=== PATIENT | male | born 1975 | race Caucasian/White ===

== ENCOUNTER 2017-03-05 05:48 | Inpatient (IN) | payer SELFPAY ==
[2017-03-05] MEDS ORDERED: Vancomycin HCl 1.5 GM in Sodium Chloride 0.9% 250 ML 300 ML IVPB SCH (06:30)
[2017-03-05] MEDS ORDERED: cefTRIAXone\\ROCEPHIN 2 GM VIAL ONE (06:31)
[2017-03-05] MEDS ORDERED: Dexamethasone 10 MG/ML VIAL ONE (07:49)
[2017-03-05 07:54] LABS: ALT (SGPT) 57 U/L (8-55); AST (SGOT) 51 U/L (5-34); Alkaline Phosphatase 86 U/L (40-150); Bilirubin, Direct 0.2 mg/dL (0.1-0.3); Bilirubin, Total 0.3 mg/dL (0.2-1.2); Lipase 19 U/L (8-78); Protein, Total 4.9 g/dL (6.0-8.3)
[2017-03-05] MEDS ORDERED: Ondansetron HCl/PF 4 MG/2 ML Vial IVP PRN (07:54)
[2017-03-05] MEDS ORDERED: Calcium Carbonate 500 MG ChewTAB PO PRN (07:54)
[2017-03-05] MEDS ORDERED: Senokot 8.6 MG TAB PO PRN (07:54)
[2017-03-05] MEDS ORDERED: Ondansetron ODT 4 MG TAB PO PRN (07:54)
[2017-03-05] MEDS ORDERED: Nitroglycerin 0.4 MG TAB (25 Tab Bottle) PO PRN (07:54)
[2017-03-05] MEDS ORDERED: Acetaminophen 325 MG TAB PO PRN (07:54)
[2017-03-05] MEDS ORDERED: ABX IVPB PRN (08:01)
[2017-03-05] MEDS ORDERED: Loratadine 10 MG TAB PO PRN (08:01)
[2017-03-05] MEDS ORDERED: VANCOMYCIN IVPB PRN (08:01)
[2017-03-05] MEDS ORDERED: Eucerin (Mineral Oil/Petrolatum,White) 30 gm Jar TOP PRN (08:01)
[2017-03-05 08:07] LABS: Anion Gap 10 mmol/L (10-20); BUN (Urea Nitrogen) 41 mg/dL (8.9-20.6); CK (CPK) 70 U/L (30-200); Calc. Creatinine Clearance 0 mL/min (70-130); Calcium 6.5 mg/dL (7.8-10.44); Carbon Dioxide 17 mmol/L (22-29); Chloride 116 mmol/L (98-107); Estimated GFR-MDRD 25
[2017-03-05 08:12] LABS: Troponin I Less than 0.010 ng/mL (< 0.028)
--- NOTE | 2017-03-05 08:31 | HP ---
DATE OF ADMISSION: 03/05/2017 PRIMARY CARE PHYSICIAN: Dr. Galloway. CHIEF COMPLAINT: Bilateral flank pain. HISTORY OF PRESENT ILLNESS: The patient is a 41-year-old male with IV drug use, coronary artery dis ease, status post stent placement and strokes in the past, presented to the emergency room at [facility] with above complaint. Over the last five days, the patient developed gradual worsening pain in bilateral flanks along with hips. His symptoms got worse last night. He also had chills. He did not record his temperature. He also urinates only once every 2 days. He does not drink that much water per family. He also doe d nausea with on and off vomiting. He has not been eating well over the past 5 days. His urine was also dark. No constipation reported. The abdominal pain was moderate in intensity without any rad iation. It was more or less constant. In the emergency room at [place], his initial vital signs showed temperature 102.2 with respira tion 20, pulse rate of 137 with blood pressure of 99/64 with O2 saturation 94% on room air. His ini tial WBC count was 14.1 with 80% neutrophils. His creatinine was 2.95 with BUN 45 with lactic acid of 2.6. Urine drug screen was positive for amphetamines, methamphetamines and opiates. He received Levaquin along with 30 mg of Toradol, Zofran, Tylenol with 1 liter IV fluids. He was transferred t o this facility for hospital admission. He also underwent a CT scan of the abdomen without contrast that showed perinephric stranding. Official report is not available at this time. PAST MEDICAL HISTORY: 1. Coronary artery disease, status post stent placement 5 months ago in [place], [place]. 2. History of cerebrovascular accident. 3. Chronic kidney disease stage 2. 4. Polysubstance abuse. PAST SURGICAL HISTORY: 1. Coronary stent placement. 2. Appendectomy. ALLERGIES: No known drug allergies. CURRENT HOME MEDICATIONS: The patient is able to name some of his medications that include Plavix, lisinopril, pravastatin, metoprolol extended release. He was recently started on Paxil. SOCIAL HISTORY: He continues to use IV drugs on and off. No alcohol. He smokes on and off. FAMILY HISTORY: Positive for coronary artery disease. REVIEW OF SYSTEMS: The following complete review of systems was negative, unless otherwise mentione d in the HPI or below: Constitutional: Weight loss or gain, ability to conduct usual activities. Skin: Rash, itching. Eyes: Double vision, pain. ENT/Mouth: Nose bleeding, neck stiffness, pain, tenderness. Cardiovascular: Palpitations, dyspnea on exertion, orthopnea. Respiratory: Shortness of breath, wheezing, cough, hemoptysis, fever or night sweats. Gastrointestinal: Poor appetite, abdominal pain, heartburn, nausea, vomiting, constipation, or diar hortensia. Genitourinary: Urgency, frequency, dysuria, nocturia. Musculoskeletal: Pain, swelling. Neurologic/Psychiatric: Anxiety, depression. Allergy/Immunologic: Skin rash, bleeding tendency. PHYSICAL EXAMINATION: VITAL SIGNS: As discussed above. His last blood pressure was in systolic 70s. GENERAL: A 41-year-old male, somewhat anxious appearing, in mild distress as well. The phlebotomis t is trying to draw blood at the same time. HEENT: Head atraumatic, normocephalic. Sclerae are anicteric. Dry mucous membranes. No oral lesi on. NECK: Supple, no JVD appreciated. No carotid bruit. LUNGS: Essentially clear to auscultation. No wheezing or rales. HEART: S1, S2 present. Regular rate and rhythm. No murmur, rubs appreciated. ABDOMEN: Soft, mild generalized tenderness mainly over the flanks. No rebound or guarding. There was voluntary guarding. Bowel sounds are present. EXTREMITIES: No edema or calf tenderness. NEUROLOGIC: Grossly nonfocal, moves all four extremities. PSYCHIATRY: Alert, awake, oriented x3. SKIN: Warm and dry. LYMPH NODE: No palpable lymph nodes in the neck. PERIPHERAL VASCULAR: Radial pulses palpable bilaterally. MUSCULOSKELETAL: No joint swelling or tenderness. LABORATORY FINDINGS: As discussed above. 1. Sodium was 142 with potassium 3.9, bicarbonate of 20. Lactic acid 2.6. His AST was 88, ALT of 86, alkaline phosphatase 165. Bandemia of 12%. 2. CT scan of the abdomen by my review as discussed above. Official report not available. 3. Urine drug screen positive for amphetamines, methamphetamines and opiates. 4. EKG by my review showed normal sinus rhythm without significant ST-T wave changes. His cardiac enzyme initially was negative. IMPRESSION: 1. Severe sepsis with acute organ dysfunction/septic shock of unclear etiology. 2. IV drug abuse. 3. Acute kidney injury on chronic kidney disease stage 2, probably secondary to #1 with dehydration . 4. Metabolic acidosis/lactic acidosis. 5. Abnormal liver function tests, rule out chronic viral hepatitis. 6. Coronary artery disease, status post stent placement 5 months ago at [place]. 7. Depression without any suicidal ideation. 8. Hypertension. The patient is currently hypotensive. 9. Hyperlipidemia. PLAN: The patient will be monitored in the intermediate care unit. We will consult Critical Care, Dr. Catalan as well as Infectious Disease, Dr. Kemp, for suspected bacteremia. We will continue IV fl uids. He will be placed on vancomycin with meropenem, dose adjusted for renal function. Blood and urine cultures were sent from [facility]. We will wait for official CT scan of abdomen report. We will repeat cardiac enzymes. We will check cortisol level. The patient was extensively counse led to quit drug use. LEVEL OF RISK: High. CONDITION OF THE PATIENT: Critical.
[2017-03-05] MEDS ORDERED: Meropenem 1 GM in Sodium Chloride 0.9% 100 ML IVPB SCH (09:00)
[2017-03-05] MEDS: Hydrocortisone Sod Succ/PF 100 mg/2 ml Vial IVP SCH ×3 (11:30→23:41)
[2017-03-05] MEDS: Sodium Chloride 0.9% 1,000 ML IV SCH ×3 (11:30→21:20)
--- NOTE | 2017-03-05 12:19 | CON ---
DATE OF CONSULTATION: 03/05/2017 Harris Fonseca is a 41-year-old gentleman who presented with bilateral flank pain. CT of the abd omen was done which showed nonspecific changes around the kidney, but no stones were seen. He appar ently has history of previous IV drug abuse as noted. He is having no fever or chills. He was hypo tensive in the ER. His systolic was 70. He said he smokes half a pack a week. He has no prior history of TB, pneumonia or bronchial asthma. PAST MEDICAL HISTORY: 1. Chronic renal failure. 2. Cerebrovascular accident. 3. Coronary artery disease. 4. Stents placed in [place]. 5. History of drug abuse. PAST SURGICAL HISTORY: 1. Appendix. 2. Stent. MEDICATIONS FROM HOME: Pravachol 20, metoprolol 25, lisinopril 40, Plavix 75. ALLERGIES: None known. SOCIAL/FAMILY HISTORY: Unremarkable. PHYSICAL EXAMINATION: VITAL SIGNS: Blood pressure as noted 70/50, pulse 80, respirations 18. GENERAL: He is complaining of pain. So far cultures are negative. His urine is growing no growth at 48 hours. His lab otherwise shows white count 14,000, H\T\H 15 and 45, platelet count 245. Creatinine is 2.9, BUN 41. IMPRESSION: 1. Urosepsis. He is on meropenem and vancomycin, adequate. 2. Hypotension. 3. Relative adrenal insufficiency. Cortisol level was low at 16. 4. Chronic renal failure. 5. Status post coronary artery disease. 6. In the past he has had meth in his urine drug screen. PLAN: Continue antibiotics. I started some steroids, thiamine and vitamin C. Volume replacement. I will follow while in the [facility].
[2017-03-05 12:53] VITALS: BMI 26.7
[2017-03-05] MEDS: Aspirin 81 mg Enteric Coated Tablet PO SCH ×2 (15:22→16:37)
[2017-03-05] MEDS: Vancomycin HCl 1 GM in Premix Bag 1 BAG IVPB SCH (15:25)
[2017-03-05] MEDS: SODIUM CHLORIDE IVPB SCH ×3 (15:25→23:40)
[2017-03-05] MEDS: ADMIXTURE FEE IVPB SCH ×3 (15:25→23:40)
[2017-03-05] MEDS: ASCORBIC ACID IVPB SCH ×3 (15:25→23:40)
[2017-03-05] MEDS: Docusate 100 MG CAP PO SCH ×2 (15:26→21:03)
[2017-03-05] MEDS: Clopidogrel Bisulfate 75 MG TAB PO SCH (16:37)
[2017-03-05] MEDS: Famotidine 20 MG TAB PO SCH (16:37)
[2017-03-05] MEDS: traMADol HCl 50 MG TAB PO PRN (16:37)
[2017-03-05] MEDS: Cefepime 2 GM in Sodium Chloride 0.9% 100 ML IVPB SCH (18:10)
--- NOTE | 2017-03-05 18:32 | CON ---
DATE OF CONSULTATION: 03/05/2017 REASON FOR CONSULTATION: Back pain and fever. HISTORY OF PRESENT ILLNESS: A 41-year-old who has a history of premature coronary artery disease with prior stenting in [place], prior CVA as well, history of IV drug use with positive hepatitis C serology which he was not aware of, who was admitted at this time with new onset of bilateral pain in the lower back area paravertebral location, radiating and wrapping around towards the groin and left lower quadrants. Patient developed chills and fever, although he did not record his temperature. Had some nausea and some vomiting. The patient denies having resumed intravenous drug use. Some anorexia and darkening of the urine color. No headaches, no visual symptoms, sore throat, odynophagia, or dysphagia. No cough or sputum production or chest pain. No upper back pain. Initially, he came to the emergency room in [place]; initial temperature 102.2 with respiratory rate 20, pulse 137, blood pressure 99 /64, and O2 sat 94%. White cell count was initially 14,000 with predominance of mature neutrophils and creatinine 2.95. Lactic acid 2.6. Drug screen was positive for methamphetamines and opiates. He was given Levaquin and transferred to this area. Initial findings here included abdomen and pelvis CT with some perinephric stranding bilaterally, but no hydronephrosis and no kidney stones. For some reason, a chest x-ray was not done. Currently, Mr. Fonseca appears somewhat uncomfortable. The pain is fairly intense in the same location, wrapping around the lower quadrants towards the inguinal area. PAST MEDICAL HISTORY: Coronary artery disease with stenting few months ago in [place], prior CVA with left-sided weakness, renal insufficiency with history of IV drug use in the past. He was not aware of his hepatitis C serology. PAST SURGICAL HISTORY: As above plus appendectomy. ALLERGIES: None. MEDICATIONS: Plavix, lisinopril, pravastatin, metoprolol, and Paxil. SOCIAL HISTORY: Apparently still using intravenous drugs on and off, still smoking. No alcoholic beverage use. He lives with significant other and she has hepatitis C, starting treatment tomorrow. FAMILY HISTORY: Coronary artery disease. PHYSICAL EXAMINATION: VITAL SIGNS: T-max 97.6 here in the hospital, blood pressure 104/66, pulse 83, respirations 22, and O2 saturation 97%. SKIN: Examination with no areas of abnormalities. No breakdown, no petechia, no lymphadenopathy. HEENT: Ocular movements are conjugate. Sclerae white. Pupils are equal. Conjunctivae are normal. Nasal passages patent. Ear exam normal. Oral cavity moist. Quite a few teeth in place with some decay and gum disease. NECK: Supple, no jugular venous distention or carotid bruits. No neck pain. No thyromegaly. LUNGS: With symmetric clear breath sounds. S1 and S2 without murmurs. No S3 or S4, no murmurs. ABDOMEN: Soft with moderate tenderness in the lower quadrants towards the inguinal area, moderate pain on palpation of the lower lumbosacral spine area, particularly the paravertebral space is close to the sacroiliac joint with above it. : No genital abnormalities. EXTREMITIES: No joint inflammatory activity. Pulses are 1+ in dorsalis pedis. NEUROLOGIC: Plantar responses are flexor. No clonus. Cognitive function appears to be intact. He is alert and oriented. LABORATORY DATA: Sodium 138, creatinine 2.82 and is baseline at 1.19 on 2014. Lactic acid 2.3, AST 51, ALT 57. CRP 2.76. Albumin 2.7. Hepatitis C serology positive, HIV negative. Two sets of blood cultures are pending. Urine culture, no growth at 48 hours. ASSESSMENT: 1. History of IV drug use with still intermittent use. 2. Coronary artery disease premature with recent stenting. 3. New onset of bilateral lower lumbosacral spine and sacroiliac pain with radiation towards the anterior lower segments of the abdomen at right and left side associated with fever and leukocytosis. DISCUSSION: Differential diagnosis includes bacteremia from possible endocarditis with seeding of the lower lumbosacral spine area with radiculopathy. In view of the normal urinalysis, pyelonephritis or other type of invasive UTI with obstruction is less likely. Retroperitoneal process is less likely in view of the CT scan findings. The patient will need an MRI of the lumbosacral spine and sacroiliac area with or without contrast depending on progress of renal function. Monitor blood cultures and treat accordingly. The patient eventually will need evaluation and management for hepatitis C. MTDD
[2017-03-05] MEDS: Thiamine HCl 200 MG, Admixture Fee 1 EACH in Sodium Chloride 0.9% 50 ML IVPB SCH (21:03)
[2017-03-05] MEDS: Enoxaparin Sodium 40 MG/0.4 ML SYRINGE SC SCH (21:04)
[2017-03-06] MEDS: Sodium Chloride 0.9% 1,000 ML IV SCH ×3 (02:05→16:23)
[2017-03-06] MEDS: Cefepime 2 GM in Sodium Chloride 0.9% 100 ML IVPB SCH (04:56)
[2017-03-06 05:01] LABS: PTT 37.5 SEC (22.9-36.1); Prothrombin Time 15.9 SEC (12.0-14.7)
[2017-03-06 05:16] LABS: ALT (SGPT) 54 U/L (8-55); AST (SGOT) 34 U/L (5-34); Alkaline Phosphatase 89 U/L (40-150); Anion Gap 12 mmol/L (10-20); BUN (Urea Nitrogen) 30 mg/dL (8.9-20.6); Bilirubin, Total 0.3 mg/dL (0.2-1.2); Calc. Creatinine Clearance 70 mL/min (70-130); Calcium 8.1 mg/dL (7.8-10.44); Carbon Dioxide 19 mmol/L (22-29); Chloride 115 mmol/L (98-107); Estimated GFR-MDRD 44; Magnesium 1.6 mg/dL (1.6-2.6); Phosphorus 3.1 mg/dL (2.3-4.7); Protein, Total 6.4 g/dL (6.0-8.3)
[2017-03-06 05:26] LABS: Band 29 % (5-11); Hematocrit 39.4 % (42.0-52.0); Mean Platelet Volume 8.6 fL (7.4-10.4); Neutrophil 67 % (42-75); Red Blood Cell (RBC) Count 4.06 mill/uL (4.70-6.10); White Blood Cell (WBC) Count 31.7 thou/uL (4.8-10.8)
[2017-03-06] MEDS: Hydrocortisone Sod Succ/PF 100 mg/2 ml Vial IVP SCH ×3 (05:52→18:42)
[2017-03-06] MEDS: SODIUM CHLORIDE IVPB SCH ×3 (05:53→18:43)
[2017-03-06] MEDS: ADMIXTURE FEE IVPB SCH ×3 (05:53→18:43)
[2017-03-06] MEDS: ASCORBIC ACID IVPB SCH ×3 (05:53→18:43)
[2017-03-06] MEDS: Docusate 100 MG CAP PO SCH ×2 (09:00→19:55)
[2017-03-06] MEDS: Thiamine HCl 200 MG, Admixture Fee 1 EACH in Sodium Chloride 0.9% 50 ML IVPB SCH ×2 (09:01→19:56)
[2017-03-06] MEDS: Clopidogrel Bisulfate 75 MG TAB PO SCH (09:01)
[2017-03-06] MEDS: Famotidine 20 MG TAB PO SCH (09:01)
[2017-03-06] MEDS: traMADol HCl 50 MG TAB PO PRN ×2 (09:05→19:54)
--- NOTE | 2017-03-06 09:40 | PRG ---
DATE OF SERVICE: 03/06/2017 This morning he is much better. PHYSICAL EXAMINATION: VITAL SIGNS: His blood pressure is 146/60, sats are 99%, temperature 97. So far cultures are negative. He is still having some flank pain. CHEST: Chest reveals decreased breath sounds without any wheezing. CARDIAC: Normal S1, S2. ABDOMEN: Soft, no masses. LABORATORY DATA: White count 13,000, H\T\H 12 and 39, platelet count is normal. Creatinine is impr liz to 1.72. IMPRESSION: 1. Polysubstance drug abuse. 2. Sepsis, probably urinary tract infection, culture negative. 3. Hypertension, resolved. 4. Relative adrenal insufficiency. 5. Chronic renal failure. PLAN: Continue antibiotics per Infectious Disease, Thiamine, vitamin C, hydrocortisone as per xavieri s protocol. I will follow while in the [facility].
[2017-03-06] MEDS: Vancomycin HCl 1 GM in Premix Bag 1 BAG IVPB SCH (14:25)
--- NOTE | 2017-03-06 15:48 | PDOC.PN ---
- Subjective Encounter Start Date: 03/06/17 Encounter Start Time: 13:00 Patient seen and examined. Feels better. No overnight events - Objective Resuscitation Status: Resuscitation Status FULL:Full Resuscitation MAR Reviewed: Yes Vital Signs & Weight: Vital Signs (12 hours) Temp Pulse Resp BP Pulse Ox 03/06/17 15:34 98.5 F 65 16 140/85 100 03/06/17 11:00 98.4 F 66 18 161/93 H 100 03/06/17 08:00 97.8 F 70 18 03/06/17 07:00 97.8 F 70 18 146/80 H 99 03/06/17 06:42 97 03/06/17 04:00 98.4 F 61 18 148/82 H 100 Weight Weight 192 lb I&O: 03/05/17 03/06/17 03/07/17 06:59 06:59 06:59 Intake Total 4560 Output Total 3775 Balance 785 Result Diagrams: 03/06/17 04:25 03/06/17 04:25 EKG Reviewed by me: Yes (Tele SR) Phys Exam - Physical Examination Constitutional: NAD Respiratory: no wheezing, no rales, no rhonchi Symmetrical Cardiovascular: RRR, no rub No heaves/pulsations Gastrointestinal: soft, non-tender, no distention, positive bowel sounds Musculoskeletal: no edema Neurological: non-focal, normal sensation, moves all 4 limbs Psychiatric: A&O x 3 Dx/Plan - Plan DVT proph w/lovenox, DVT proph w/SCDs IMPRESSION: 1. Severe sepsis with acute organ dysfunction/septic shock of unclear etiology. Cultures negative 2. Acute kidney injury on chronic kidney disease stage 2.. 3. IV drug abuse 4. Metabolic acidosis/lactic acidosis. 5. Abnormal liver function tests, rule out chronic viral hepatitis. 6. Coronary artery disease, status post stent placement 5 months ago at [place]. 7. Depression without any suicidal ideation. 8. Hypertension. The patient is currently hypotensive. 9. Hyperlipidemia. 10 Chronic Hep C PLAN: * Cont IV fluids/Atbx * On stress dose steroids - will start tapering * AM labs * ID/Critical care following * Cont to monitor Review of Systems - Review of Systems Respiratory: negative: Cough, Dry, Shortness of Breath, Hemoptysis, SOB with Excertion, Pleuritic Pain, Sputum, Wheezing Cardiovascular: negative: Chest Pain, Palpitations, Orthopnea, Paroxysmal Noc. Dyspnea, Edema, Light Headedness, Other Gastrointestinal: negative: Nausea, Vomiting, Abdominal Pain, Diarrhea, Constipation, Melena, Hematochezia, Other Genitourinary: negative: Dysuria, Frequency, Incontinence, Hematuria, Retention , Other - Medications/Allergies Allergies/Adverse Reactions: Allergies Allergy/AdvReac Type Severity Reaction Status Date / Time No Known Allergies Allergy Verified 09/11/14 03:47 Medications: Current Medications Acetaminophen (Tylenol) 650 mg PO Q8H PRN PRN Reason: Headache/Fever or Pain Last Admin: 03/05/17 11:30 Dose: 650 mg Hydrocodone Bitart/Acetaminophen ([place] 5/325) 1 tab PO Q8H PRN PRN Reason: Severe Pain (7-10) Albuterol/Ipratropium (Duoneb) 3 ml NEB Q4H PRN PRN Reason: SOB &/or Wheezing Aspirin (Ecotrin) 81 mg PO DAILY [facility] Last Admin: 03/05/17 16:37 Dose: 81 mg Calcium Carbonate (Tums) 1,000 mg PO Q4H PRN PRN Reason: Heartburn or Indigestion Clopidogrel Bisulfate (Plavix) 75 mg PO QAM [facility] Last Admin: 03/06/17 09:01 Dose: 75 mg Docusate Sodium (Colace) 100 mg PO BID [facility] Last Admin: 03/06/17 09:00 Dose: 100 mg Enoxaparin Sodium (Lovenox) 40 mg SC 2100 [facility] Last Admin: 03/05/17 21:04 Dose: 40 mg Famotidine (Pepcid) 20 mg PO DAILY [facility] Last Admin: 03/06/17 09:01 Dose: 20 mg Guaifenesin (Robitussin Sf) 200 mg PO Q4H PRN PRN Reason: Cough Hydrocortisone Sodium Succinate (Solu-Cortef) 50 mg IVP Q6HR [facility] Stop: 03/12/17 12:01 Last Admin: 03/06/17 14:24 Dose: 50 mg Sodium Chloride (Normal Saline 0.9%) 1,000 mls @ 150 mls/hr IV .Q6H40M [facility] Last Admin: 03/06/17 14:24 Dose: 1,000 mls Vancomycin HCl 1 gm/ Device 200 mls @ 200 mls/hr IVPB 1400 [facility] Last Admin: 03/06/17 14:25 Dose: 200 mls Ascorbic Acid 1,500 mg/Miscellaneous Medication 1 each/ Sodium Chloride 53 mls @ 100 mls/hr IVPB Q6HR [facility] Stop: 03/09/17 06:32 Last Admin: 03/06/17 14:24 Dose: 53 mls Thiamine HCl 200 mg/Miscellaneous Medication 1 each/ Sodium Chloride 52 mls @ 100 mls/hr IVPB Q12HR [facility] Stop: 03/09/17 21:01 Last Admin: 03/06/17 09:01 Dose: 52 mls Cefepime HCl 2 gm/Miscellaneous Medication 1 each/ Sodium Chloride 100 mls @ 200 mls/hr IVPB 0500,1700 [facility] Loratadine (Claritin) 10 mg PO DAILYPRN PRN PRN Reason: Sinus Symptoms Mineral Oil/White Petrolatum (Eucerin Cream) 0 gm TOP BIDPRN PRN PRN Reason: Dry Skin Miscellaneous Medication (Pharmacy To Dose) 1 each IVPB .DAILY PRN PRN Reason: LAB VALUES Nitroglycerin (Nitrostat) 0.4 mg PO Q5MIN PRN PRN Reason: Chest Pain Ondansetron HCl (Zofran Odt) 4 mg PO Q6H PRN PRN Reason: Nausea/Vomiting Ondansetron HCl (Zofran) 4 mg IVP Q6H PRN PRN Reason: Nausea/Vomiting Senna (Senokot) 2 tab PO HSPRN PRN PRN Reason: Constipation Sodium Chloride (Flush - Normal Saline) 10 ml IVF Q12HR [facility] Sodium Chloride (Flush - Normal Saline) 10 ml IVF PRN PRN PRN Reason: Saline Flush Tramadol HCl (Ultram) 50 mg PO Q6H PRN PRN Reason: Moderate Pain (4-6) Last Admin: 03/06/17 09:05 Dose: 50 mg
[2017-03-06] MEDS: HYDROcodone/Acetaminophen 5/325 mg Tablet PO PRN (16:21)
[2017-03-06] MEDS: Cefepime 2 GM, Admixture Fee 1 EACH in Sodium Chloride 0.9% 100 ML IVPB SCH (16:22)
[2017-03-06] MEDS: Enoxaparin Sodium 40 MG/0.4 ML SYRINGE SC SCH (19:56)
[2017-03-06] MEDS: Diabetic Tussin 200 MG/10 ML UDCUP PO PRN (20:00)
[2017-03-07] MEDS: ADMIXTURE FEE IVPB SCH ×2 (00:14→05:24)
[2017-03-07] MEDS: Sodium Chloride 0.9% 1,000 ML IV SCH ×2 (00:14→05:29)
[2017-03-07] MEDS: ASCORBIC ACID IVPB SCH ×2 (00:14→05:24)
[2017-03-07] MEDS: Hydrocortisone Sod Succ/PF 100 mg/2 ml Vial IVP SCH ×2 (00:14→05:24)
[2017-03-07] MEDS: SODIUM CHLORIDE IVPB SCH ×2 (00:14→05:24)
[2017-03-07] MEDS: HYDROcodone/Acetaminophen 5/325 mg Tablet PO PRN ×2 (03:38→11:47)
[2017-03-07] MEDS: cloNIDine 0.1 MG TAB PO PRN (03:38)
[2017-03-07] MEDS: Diabetic Tussin 200 MG/10 ML UDCUP PO PRN (03:38)
[2017-03-07] MEDS ORDERED: Nitroglycerin 2% Ointment 1 INCH/1 GM Packet ONE (04:01)
[2017-03-07] MEDS ORDERED: Morphine 2 MG/ML SYRINGE SLOW IVP PRN (04:03)
[2017-03-07] MEDS ORDERED: Nitroglycerin 2% Ointment 1 INCH/1 GM Packet TOP SCH (04:15)
[2017-03-07 05:02] LABS: ALT (SGPT) 50 U/L (8-55); AST (SGOT) 29 U/L (5-34); Alkaline Phosphatase 97 U/L (40-150); Anion Gap 12 mmol/L (10-20); BUN (Urea Nitrogen) 24 mg/dL (8.9-20.6); Bilirubin, Total 0.3 mg/dL (0.2-1.2); Calc. Creatinine Clearance 107 mL/min (70-130); Calcium 8.3 mg/dL (7.8-10.44); Carbon Dioxide 17 mmol/L (22-29); Chloride 116 mmol/L (98-107); Estimated GFR-MDRD 72; Globulin 3.1 g/dL (2.4-3.5); Protein, Total 6.4 g/dL (6.0-8.3)
[2017-03-07 05:16] LABS: Band 7 % (5-11); Hematocrit 39.3 % (42.0-52.0); Macrocytosis SLIGHT = 6-15 cells (100X) (0-5/hpf); Mean Platelet Volume 9.7 fL (7.4-10.4); Metamyelocyte 2 % (0-0); Neutrophil 78 % (42-75); Red Blood Cell (RBC) Count 4.09 mill/uL (4.70-6.10); White Blood Cell (WBC) Count 25.5 thou/uL (4.8-10.8)
[2017-03-07] MEDS: Cefepime 2 GM, Admixture Fee 1 EACH in Sodium Chloride 0.9% 100 ML IVPB SCH ×2 (05:24→17:20)
[2017-03-07] MEDS ORDERED: Loperamide HCl 2 MG CAP PO PRN (07:10)
[2017-03-07] MEDS ORDERED: Milk Of Magnesia 30 ML UDCUP PO PRN (07:10)
[2017-03-07] MEDS ORDERED: Mag-Al 1200 mg/1200 mg/30 ML UDCUP PO PRN (07:10)
[2017-03-07] MEDS ORDERED: hydrALAZINE 20 MG/ML VIAL SLOW IVP PRN (07:10)
[2017-03-07] MEDS ORDERED: Temazepam 15 MG CAP PO PRN (07:10)
[2017-03-07] MEDS ORDERED: Sodium Chloride 0.45% 1,000 ML IV SCH (07:15)
[2017-03-07] MEDS: Docusate 100 MG CAP PO SCH ×2 (08:33→19:44)
[2017-03-07] MEDS: Ascorbic Acid 500 mg Chewable Tablet PO SCH (08:33)
[2017-03-07] MEDS: Lisinopril 10 MG TAB PO SCH (08:33)
[2017-03-07] MEDS: Famotidine 20 MG TAB PO SCH ×2 (08:33→19:44)
[2017-03-07] MEDS: Clopidogrel Bisulfate 75 MG TAB PO SCH (08:33)
[2017-03-07] MEDS: Aspirin 81 mg Enteric Coated Tablet PO SCH (08:33)
[2017-03-07] MEDS: Folic Acid 1 MG TAB PO SCH (08:34)
[2017-03-07 08:38] LABS: Troponin I 0.052 ng/mL (< 0.028)
[2017-03-07] MEDS ORDERED: Non-Formulary Item 1 EACH (Lisinopril [Lisinopril] 40 MG) PO SCH (09:00)
[2017-03-07] MEDS ORDERED: Nitroglycerin 2% Ointment 1 INCH/1 GM Packet TOP PRN (10:00)
[2017-03-07 10:41] LABS: Troponin I 0.049 ng/mL (< 0.028)
--- NOTE | 2017-03-07 11:26 | PDOC.PN ---
- Subjective Encounter Start Date: 03/07/17 Encounter Start Time: 08:35 -: old records requested/rev Patient seen and examined. No overnight events, has no chest pain, no fever - Objective Resuscitation Status: Resuscitation Status FULL:Full Resuscitation MAR Reviewed: Yes Vital Signs & Weight: Vital Signs (12 hours) Temp Pulse Resp BP BP BP Pulse Ox 03/07/17 08:00 97.9 F 63 16 03/07/17 07:22 97.9 F 63 16 154/91 H 95 03/07/17 04:30 168/92 H 03/07/17 04:17 98.0 F 68 24 H 166/117 H 93 L 03/07/17 03:38 166/117 H 03/07/17 00:00 97.9 F 65 24 H 173/113 H 97 Weight Weight 192 lb I&O: 03/06/17 03/07/17 03/08/17 06:59 06:59 06:59 Intake Total 4560 3910 Output Total 3775 2000 Balance 785 1910 Result Diagrams: 03/07/17 03:38 03/07/17 03:38 Radiology Reviewed by me: Yes Phys Exam - Physical Examination Constitutional: NAD HEENT: PERRLA, moist MMs, sclera anicteric Neck: no JVD, supple Respiratory: no wheezing, no rales, no rhonchi Cardiovascular: RRR, no significant murmur, no rub Gastrointestinal: soft, non-tender, no distention, positive bowel sounds Musculoskeletal: no edema, pulses present Neurological: non-focal, normal sensation, moves all 4 limbs Psychiatric: normal affect, A&O x 3 Skin: no rash, normal turgor Dx/Plan (1) Demand ischemia of myocardium Code(s): I24.8 - OTHER FORMS OF ACUTE ISCHEMIC HEART DISEASE Status: Acute (2) Acute kidney failure Status: Acute (3) Lactic acidosis Code(s): E87.2 - ACIDOSIS Status: Acute (4) Lumbosacral pain Code(s): M54.5 - LOW BACK PAIN Status: Acute (5) Sepsis with acute organ dysfunction Code(s): A41.9 - SEPSIS, UNSPECIFIED ORGANISM; R65.20 - SEVERE SEPSIS WITHOUT SEPTIC SHOCK Status: Acute (6) Transaminitis Code(s): R74.0 - NONSPEC ELEV OF LEVELS OF TRANSAMNS & LACTIC ACID DEHYDRGNSE Status: Acute (7) CAD (coronary artery disease) Code(s): I25.10 - ATHSCL HEART DISEASE OF [place] CORONARY ARTERY W/O ANG PCTRS Status: Chronic (8) Chronic hepatitis C Code(s): B18.2 - CHRONIC VIRAL HEPATITIS C Status: Chronic (9) Dyslipidemia Code(s): E78.5 - HYPERLIPIDEMIA, UNSPECIFIED Status: Chronic (10) Hypertension Code(s): I10 - ESSENTIAL (PRIMARY) HYPERTENSION Status: Chronic (11) Polysubstance abuse Code(s): F19.10 - OTHER PSYCHOACTIVE SUBSTANCE ABUSE, UNCOMPLICATED Status: Chronic - Plan cont current plan of care, plan discussed w/ family, continue antibiotics * renal function improved * start lisinopril 10 mg po daily * continue Toprol XL * DC IVF * Today MRI * DC vitamin C , thiamin and hydrocortisone * start oral vitamin c, folic acid, thiamin * follow culture, so far negative * medication reviewed as below * symptomatic treatment * check urine drug screen * echo pending result. Review of Systems - Review of Systems Constitutional: negative: Fever, Chills, Sweats, Weakness, Malaise, Other ENT: negative: Ear Pain, Ear Discharge, Nose Pain, Nose Discharge, Nose Congestion, Mouth Pain, Mouth Swelling, Throat Pain, Throat Swelling, Other Respiratory: negative: Cough, Dry, Shortness of Breath, Hemoptysis, SOB with Excertion, Pleuritic Pain, Sputum, Wheezing Cardiovascular: negative: Chest Pain, Palpitations, Orthopnea, Paroxysmal Noc. Dyspnea, Edema, Light Headedness, Other Gastrointestinal: negative: Nausea, Vomiting, Abdominal Pain, Diarrhea, Constipation, Melena, Hematochezia, Other Genitourinary: negative: Dysuria, Frequency, Incontinence, Hematuria, Retention , Other Musculoskeletal: negative: Neck Pain, Shoulder Pain, Arm Pain, Back Pain, Hand Pain, Leg Pain, Foot Pain, Other - Medications/Allergies Allergies/Adverse Reactions: Allergies Allergy/AdvReac Type Severity Reaction Status Date / Time No Known Allergies Allergy Verified 09/11/14 03:47 Medications: Current Medications Acetaminophen (Tylenol) 650 mg PO Q8H PRN PRN Reason: Headache/Fever or Pain Last Admin: 03/05/17 11:30 Dose: 650 mg Hydrocodone Bitart/Acetaminophen ([place] 5/325) 1 tab PO Q8H PRN PRN Reason: Severe Pain (7-10) Last Admin: 03/07/17 03:38 Dose: 1 tab Al Hydroxide/Mg Hydroxide (Maalox) 15 ml PO Q4H PRN PRN Reason: Heartburn or Indigestion Albuterol/Ipratropium (Duoneb) 3 ml NEB Q4H PRN PRN Reason: SOB &/or Wheezing Ascorbic Acid (Vitamin C) 1,000 mg PO DAILY [facility] Last Admin: 03/07/17 08:33 Dose: 1,000 mg Aspirin (Ecotrin) 81 mg PO DAILY [facility] Last Admin: 03/07/17 08:33 Dose: 81 mg Calcium Carbonate (Tums) 1,000 mg PO Q4H PRN PRN Reason: Heartburn or Indigestion Last Admin: 03/07/17 03:44 Dose: 1,000 mg Clonidine HCl (Catapres) 0.1 mg PO Q6H PRN PRN Reason: SBP GREATER THAN 160 Last Admin: 03/07/17 03:38 Dose: 0.1 mg Clopidogrel Bisulfate (Plavix) 75 mg PO QAM [facility] Last Admin: 03/07/17 08:33 Dose: 75 mg Docusate Sodium (Colace) 100 mg PO BID [facility] Last Admin: 03/07/17 08:33 Dose: Not Given Enoxaparin Sodium (Lovenox) 40 mg SC 2100 [facility] Last Admin: 03/06/17 19:56 Dose: 40 mg Famotidine (Pepcid) 20 mg PO BID [facility] Last Admin: 03/07/17 08:33 Dose: 20 mg Folic Acid (Folvite) 1 mg PO DAILY [facility] Last Admin: 03/07/17 08:34 Dose: 1 mg Guaifenesin (Robitussin Sf) 200 mg PO Q4H PRN PRN Reason: Cough Last Admin: 03/07/17 03:38 Dose: 200 mg Hydralazine HCl (Apresoline) 10 mg SLOW IVP Q4H PRN PRN Reason: Systolic BP > 180 Vancomycin HCl 1 gm/ Device 200 mls @ 200 mls/hr IVPB 1400 [facility] Last Admin: 03/06/17 14:25 Dose: 200 mls Cefepime HCl 2 gm/Miscellaneous Medication 1 each/ Sodium Chloride 100 mls @ 200 mls/hr IVPB 0500,1700 [facility] Last Admin: 03/07/17 05:24 Dose: 100 mls Sodium Chloride (1/2 Normal Saline) 1,000 mls @ 75 mls/hr IV .[id number] [facility] Last Admin: 03/07/17 08:32 Dose: 1,000 mls Lisinopril (Zestril) 10 mg PO DAILY [facility] Last Admin: 03/07/17 08:33 Dose: 10 mg Loperamide HCl (Imodium) 2 mg PO PRN PRN PRN Reason: Diarrhea/Loose Stools Loratadine (Claritin) 10 mg PO DAILYPRN PRN PRN Reason: Sinus Symptoms Magnesium Hydroxide (Milk Of Magnesium) 30 ml PO DAILYPRN PRN PRN Reason: Constipation Metoprolol Succinate (Toprol Xl) 25 mg PO DAILY [facility] Last Admin: 03/07/17 08:33 Dose: 25 mg Mineral Oil/White Petrolatum (Eucerin Cream) 0 gm TOP BIDPRN PRN PRN Reason: Dry Skin Miscellaneous Medication (Pharmacy To Dose) 1 each IVPB .DAILY PRN PRN Reason: LAB VALUES Morphine Sulfate (Morphine Sulfate) 2 mg SLOW IVP Q4H PRN PRN Reason: Pain Nitroglycerin (Nitrostat) 0.4 mg PO Q5MIN PRN PRN Reason: Chest Pain Nitroglycerin (Nitro-Bid 2% Ointment) 1 inch TOP Q6H PRN PRN Reason: Chest Pain Ondansetron HCl (Zofran Odt) 4 mg PO Q6H PRN PRN Reason: Nausea/Vomiting Ondansetron HCl (Zofran) 4 mg IVP Q6H PRN PRN Reason: Nausea/Vomiting Senna (Senokot) 2 tab PO HSPRN PRN PRN Reason: Constipation Simvastatin (Zocor) 10 mg PO [facility] Sodium Chloride (Flush - Normal Saline) 10 ml IVF Q12HR [facility] Last Admin: 03/07/17 08:34 Dose: Not Given Sodium Chloride (Flush - Normal Saline) 10 ml IVF PRN PRN PRN Reason: Saline Flush Temazepam (Restoril) 15 mg PO HSPRN PRN PRN Reason: Insomnia Thiamine HCl (Thiamine) 100 mg PO DAILY [facility] Last Admin: 03/07/17 08:33 Dose: 100 mg Tramadol HCl (Ultram) 50 mg PO Q6H PRN PRN Reason: Moderate Pain (4-6) Last Admin: 03/06/17 19:54 Dose: 50 mg
[2017-03-07] MEDS ORDERED: Amlodipine 5 MG TAB PO SCH (11:30)
[2017-03-07 13:31] LABS: Vancomycin, Trough 4.4 ug/mL
--- NOTE | 2017-03-07 14:22 | MRI ---
MRI LUMBAR SPINE WITHOUT CONTRAST: Date: 03/07/17 HISTORY: L5 paravertebral pain with fever. IV drug abuse history. COMPARISON: CT abdomen and pelvis dated 12/03/16. FINDINGS: The background marrow signal is normal. The lumbar lordosis is maintained. Aortic contour appears normal where visualized. No adenopathy. Evaluation of the lumbar spine is limited due to motion artifact. Levels are as follows: T12-L1: Normal disc space. No neural foraminal or spinal canal narrowing. L1-2: Normal disc space. No neural foraminal or spinal canal narrowing. L2-3: Normal disc space. No neural foraminal or spinal canal narrowing. L3-4: There is mild circumferential disc bulge and height loss. This causes moderate bilateral neural fora andreas narrowing. Mild facet arthropathy. L4-5: Normal disc space with minimal disc bulge. There is mild left and right-sided neural foraminal narro wing. L5-S1: Moderate degenerative disc space height loss. Moderate disc desiccation. No significant neural justin inal or spinal canal narrowing. IMPRESSION: 1. Mild to moderate disc disease at L3-4 and L4-5 without spinal canal narrowing. There is moderate neural foraminal narrowing at L3-4. 2. No evidence for end plate destruction to suggest diskitis/osteomyelitis. POS: [facility]
[2017-03-07] MEDS: Vancomycin HCl 1.25 GM in Sodium Chloride 0.9% 250 ML 250 ML IVPB SCH (15:02)
[2017-03-07 15:23] LABS: Hep C PCR-Quant 43500 IU/mL (.)
[2017-03-07] MEDS: Simvastatin 5 MG TAB PO SCH (19:44)
[2017-03-07] MEDS: Enoxaparin Sodium 40 MG/0.4 ML SYRINGE SC SCH (19:45)
[2017-03-08] MEDS: HYDROcodone/Acetaminophen 5/325 mg Tablet PO PRN ×3 (01:34→17:02)
[2017-03-08] MEDS: cloNIDine 0.1 MG TAB PO PRN (01:34)
[2017-03-08] MEDS: Vancomycin HCl 1.25 GM in Sodium Chloride 0.9% 250 ML 250 ML IVPB SCH ×2 (01:45→14:33)
[2017-03-08 04:38] LABS: #Basophils 0.1 thou/uL (0.0-0.2); #Eosinphils 0.3 thou/uL (0.0-0.7); #Lymphocytes 3.6 thou/uL (1.20-3.40); #Monocytes 1.1 thou/uL (0.11-0.59); #Neutrophils 12.1 thou/uL (1.40-6.50); %Basophils 0.5 % (0.0-1.0); %Eosinophils 1.6 % (0.0-10.0); %Lymphocytes 21.1 % (21.0-51.0); %Monocytes 6.3 % (0.0-10.0); Hematocrit 39.1 % (42.0-52.0); Mean Platelet Volume 8.9 fL (7.4-10.4); Red Blood Cell (RBC) Count 4.14 mill/uL (4.70-6.10); White Blood Cell (WBC) Count 17.1 thou/uL (4.8-10.8)
[2017-03-08 05:02] LABS: Anion Gap 11 mmol/L (10-20); BUN (Urea Nitrogen) 16 mg/dL (8.9-20.6); Calc. Creatinine Clearance 139 mL/min (70-130); Calcium 8.7 mg/dL (7.8-10.44); Carbon Dioxide 22 mmol/L (22-29); Chloride 109 mmol/L (98-107); Estimated GFR-MDRD Greater than 90
[2017-03-08] MEDS: Cefepime 2 GM, Admixture Fee 1 EACH in Sodium Chloride 0.9% 100 ML IVPB SCH ×2 (05:21→17:00)
[2017-03-08] MEDS: Aspirin 81 mg Enteric Coated Tablet PO SCH (08:52)
[2017-03-08] MEDS: Famotidine 20 MG TAB PO SCH ×2 (08:52→21:18)
[2017-03-08] MEDS: Lisinopril 10 MG TAB PO SCH (08:52)
[2017-03-08] MEDS: Amlodipine 5 MG TAB PO SCH (08:52)
[2017-03-08] MEDS: Ascorbic Acid 500 mg Chewable Tablet PO SCH (08:52)
[2017-03-08] MEDS: Clopidogrel Bisulfate 75 MG TAB PO SCH (08:52)
[2017-03-08] MEDS: Folic Acid 1 MG TAB PO SCH (08:52)
[2017-03-08] MEDS: Docusate 100 MG CAP PO SCH ×2 (08:57→21:17)
[2017-03-08] MEDS ORDERED: Potassium Chloride 20 MEQ TAB PO SCH (09:00)
--- NOTE | 2017-03-08 11:14 | PDOC.PN ---
- Subjective Encounter Start Date: 03/08/17 Encounter Start Time: 08:30 Patient seen and examined. No new complaints. No overnight events - Objective Resuscitation Status: Resuscitation Status FULL:Full Resuscitation MAR Reviewed: Yes Vital Signs & Weight: Vital Signs (12 hours) Temp Pulse Resp BP BP BP Pulse Ox 03/08/17 08:52 72 168/92 H 03/08/17 08:16 97.9 F 71 16 168/93 H 95 03/08/17 08:00 97.9 F 72 16 95 03/08/17 05:20 97.9 F 63 20 176/91 H 97 03/08/17 01:34 172/92 H Weight Weight 185 lb 0.32 oz I&O: 03/07/17 03/08/17 03/09/17 06:59 06:59 06:59 Intake Total 3910 2100 Output Total 2000 900 Balance 1910 1200 Result Diagrams: 03/08/17 03:38 03/08/17 03:38 Radiology Reviewed by me: Yes (MRI) Phys Exam - Physical Examination Constitutional: NAD HEENT: PERRLA, moist MMs, sclera anicteric Neck: no JVD, supple Respiratory: no wheezing, no rales, no rhonchi Cardiovascular: RRR, no significant murmur, no rub Gastrointestinal: soft, non-tender, no distention, positive bowel sounds Musculoskeletal: no edema, pulses present Neurological: non-focal, normal sensation, moves all 4 limbs Psychiatric: normal affect, A&O x 3 Skin: no rash, normal turgor Dx/Plan (1) Demand ischemia of myocardium Code(s): I24.8 - OTHER FORMS OF ACUTE ISCHEMIC HEART DISEASE Status: Acute (2) Acute kidney failure Status: Acute (3) Lactic acidosis Code(s): E87.2 - ACIDOSIS Status: Acute (4) Lumbosacral pain Code(s): M54.5 - LOW BACK PAIN Status: Acute (5) Sepsis with acute organ dysfunction Code(s): A41.9 - SEPSIS, UNSPECIFIED ORGANISM; R65.20 - SEVERE SEPSIS WITHOUT SEPTIC SHOCK Status: Acute (6) Transaminitis Code(s): R74.0 - NONSPEC ELEV OF LEVELS OF TRANSAMNS & LACTIC ACID DEHYDRGNSE Status: Acute (7) CAD (coronary artery disease) Code(s): I25.10 - ATHSCL HEART DISEASE OF [place] CORONARY ARTERY W/O ANG PCTRS Status: Chronic (8) Chronic hepatitis C Code(s): B18.2 - CHRONIC VIRAL HEPATITIS C Status: Chronic (9) Dyslipidemia Code(s): E78.5 - HYPERLIPIDEMIA, UNSPECIFIED Status: Chronic (10) Hypertension Code(s): I10 - ESSENTIAL (PRIMARY) HYPERTENSION Status: Chronic (11) Polysubstance abuse Code(s): F19.10 - OTHER PSYCHOACTIVE SUBSTANCE ABUSE, UNCOMPLICATED Status: Chronic (12) Lumbar disc disease Code(s): M51.9 - UNSP THORACIC, THORACOLUM AND LUMBOSACR INTVRT DISC DISORDER Status: Chronic - Plan cont current plan of care, plan discussed w/ family, continue antibiotics * continue iv antibiotics as ordered today * will repeat CBC tomorrow * if improving, will consider discharge on oral antibiotics * medication reviewed as below * symptomatic treatment * ambulate today * pain control. Review of Systems - Review of Systems ENT: negative: Ear Pain, Ear Discharge, Nose Pain, Nose Discharge, Nose Congestion, Mouth Pain, Mouth Swelling, Throat Pain, Throat Swelling, Other Respiratory: negative: Cough, Dry, Shortness of Breath, Hemoptysis, SOB with Excertion, Pleuritic Pain, Sputum, Wheezing Cardiovascular: negative: Chest Pain, Palpitations, Orthopnea, Paroxysmal Noc. Dyspnea, Edema, Light Headedness, Other Gastrointestinal: negative: Nausea, Vomiting, Abdominal Pain, Diarrhea, Constipation, Melena, Hematochezia, Other Genitourinary: negative: Dysuria, Frequency, Incontinence, Hematuria, Retention , Other Musculoskeletal: Back Pain. negative: Neck Pain, Shoulder Pain, Arm Pain, Hand Pain, Leg Pain, Foot Pain, Other Skin: negative: Rash, Lesions, Vimal, Bruising, Other - Medications/Allergies Allergies/Adverse Reactions: Allergies Allergy/AdvReac Type Severity Reaction Status Date / Time No Known Allergies Allergy Verified 09/11/14 03:47 Medications: Current Medications Acetaminophen (Tylenol) 650 mg PO Q8H PRN PRN Reason: Headache/Fever or Pain Last Admin: 03/05/17 11:30 Dose: 650 mg Hydrocodone Bitart/Acetaminophen ([place] 5/325) 1 tab PO Q8H PRN PRN Reason: Severe Pain (7-10) Last Admin: 03/08/17 08:53 Dose: 1 tab Al Hydroxide/Mg Hydroxide (Maalox) 15 ml PO Q4H PRN PRN Reason: Heartburn or Indigestion Albuterol/Ipratropium (Duoneb) 3 ml NEB Q4H PRN PRN Reason: SOB &/or Wheezing Amlodipine Besylate (Norvasc) 5 mg PO DAILY [facility] Last Admin: 03/08/17 08:52 Dose: 5 mg Ascorbic Acid (Vitamin C) 1,000 mg PO DAILY [facility] Last Admin: 03/08/17 08:52 Dose: 1,000 mg Aspirin (Ecotrin) 81 mg PO DAILY [facility] Last Admin: 03/08/17 08:52 Dose: 81 mg Calcium Carbonate (Tums) 1,000 mg PO Q4H PRN PRN Reason: Heartburn or Indigestion Last Admin: 03/07/17 03:44 Dose: 1,000 mg Clonidine HCl (Catapres) 0.1 mg PO Q6H PRN PRN Reason: SBP GREATER THAN 160 Last Admin: 03/08/17 01:34 Dose: 0.1 mg Clopidogrel Bisulfate (Plavix) 75 mg PO QAM [facility] Last Admin: 03/08/17 08:52 Dose: 75 mg Docusate Sodium (Colace) 100 mg PO BID [facility] Last Admin: 03/08/17 08:57 Dose: Not Given Enoxaparin Sodium (Lovenox) 40 mg SC 2100 [facility] Last Admin: 03/07/17 19:45 Dose: 40 mg Famotidine (Pepcid) 20 mg PO BID [facility] Last Admin: 03/08/17 08:52 Dose: 20 mg Folic Acid (Folvite) 1 mg PO DAILY [facility] Last Admin: 03/08/17 08:52 Dose: 1 mg Guaifenesin (Robitussin Sf) 200 mg PO Q4H PRN PRN Reason: Cough Last Admin: 03/07/17 03:38 Dose: 200 mg Hydralazine HCl (Apresoline) 10 mg SLOW IVP Q4H PRN PRN Reason: Systolic BP > 180 Cefepime HCl 2 gm/Miscellaneous Medication 1 each/ Sodium Chloride 100 mls @ 200 mls/hr IVPB 0500,1700 [facility] Last Admin: 03/08/17 05:21 Dose: 100 mls Vancomycin HCl 1.25 gm/ Sodium (Chloride) 250 mls @ 166.667 mls/hr IVPB 0200, 1400 [facility] Last Admin: 03/08/17 01:45 Dose: 250 mls Lisinopril (Zestril) 10 mg PO DAILY [facility] Last Admin: 03/08/17 08:52 Dose: 10 mg Loperamide HCl (Imodium) 2 mg PO PRN PRN PRN Reason: Diarrhea/Loose Stools Loratadine (Claritin) 10 mg PO DAILYPRN PRN PRN Reason: Sinus Symptoms Magnesium Hydroxide (Milk Of Magnesium) 30 ml PO DAILYPRN PRN PRN Reason: Constipation Metoprolol Succinate (Toprol Xl) 25 mg PO DAILY [facility] Last Admin: 03/08/17 08:52 Dose: 25 mg Mineral Oil/White Petrolatum (Eucerin Cream) 0 gm TOP BIDPRN PRN PRN Reason: Dry Skin Miscellaneous Medication (Pharmacy To Dose) 1 each IVPB .DAILY PRN PRN Reason: LAB VALUES Morphine Sulfate (Morphine Sulfate) 2 mg SLOW IVP Q4H PRN PRN Reason: Pain Nitroglycerin (Nitrostat) 0.4 mg PO Q5MIN PRN PRN Reason: Chest Pain Nitroglycerin (Nitro-Bid 2% Ointment) 1 inch TOP Q6H PRN PRN Reason: Chest Pain Ondansetron HCl (Zofran Odt) 4 mg PO Q6H PRN PRN Reason: Nausea/Vomiting Ondansetron HCl (Zofran) 4 mg IVP Q6H PRN PRN Reason: Nausea/Vomiting Senna (Senokot) 2 tab PO HSPRN PRN PRN Reason: Constipation Simvastatin (Zocor) 10 mg PO HS [facility] Last Admin: 03/07/17 19:44 Dose: 10 mg Sodium Chloride (Flush - Normal Saline) 10 ml IVF Q12HR [facility] Last Admin: 03/08/17 08:57 Dose: 10 ml Sodium Chloride (Flush - Normal Saline) 10 ml IVF PRN PRN PRN Reason: Saline Flush Last Admin: 03/07/17 17:20 Dose: 10 ml Temazepam (Restoril) 15 mg PO HSPRN PRN PRN Reason: Insomnia Last Admin: 03/07/17 23:52 Dose: 15 mg Thiamine HCl (Thiamine) 100 mg PO DAILY [facility] Last Admin: 03/08/17 08:52 Dose: 100 mg Tramadol HCl (Ultram) 50 mg PO Q6H PRN PRN Reason: Moderate Pain (4-6) Last Admin: 03/06/17 19:54 Dose: 50 mg
[2017-03-08] MEDS: traMADol HCl 50 MG TAB PO PRN ×2 (13:22→21:22)
[2017-03-08 21:13] VITALS: TEMP 97.7
[2017-03-08] MEDS: Simvastatin 5 MG TAB PO SCH (21:18)
[2017-03-08] MEDS: Enoxaparin Sodium 40 MG/0.4 ML SYRINGE SC SCH (21:18)
[2017-03-09 01:24] LABS: Vancomycin, Trough 11.9 ug/mL
[2017-03-09] MEDS: Vancomycin HCl 1.25 GM in Sodium Chloride 0.9% 250 ML 250 ML IVPB SCH (01:59)
[2017-03-09] MEDS: HYDROcodone/Acetaminophen 5/325 mg Tablet PO PRN (02:02)
[2017-03-09] MEDS: Cefepime 2 GM, Admixture Fee 1 EACH in Sodium Chloride 0.9% 100 ML IVPB SCH (04:17)
[2017-03-09] MEDS: traMADol HCl 50 MG TAB PO PRN (04:19)
[2017-03-09 05:25] LABS: #Basophils 0.1 thou/uL (0.0-0.2); #Eosinphils 0.6 thou/uL (0.0-0.7); #Lymphocytes 3.7 thou/uL (1.20-3.40); #Neutrophils 7.1 thou/uL (1.40-6.50); %Basophils 0.5 % (0.0-1.0); %Eosinophils 4.8 % (0.0-10.0); %Lymphocytes 29.7 % (21.0-51.0); %Monocytes 7.8 % (0.0-10.0); Mean Platelet Volume 8.3 fL (7.4-10.4); Red Blood Cell (RBC) Count 4.91 mill/uL (4.70-6.10); White Blood Cell (WBC) Count 12.4 thou/uL (4.8-10.8)
[2017-03-09 05:39] LABS: Anion Gap 13 mmol/L (10-20); BUN (Urea Nitrogen) 13 mg/dL (8.9-20.6); Calc. Creatinine Clearance 131 mL/min (70-130); Carbon Dioxide 22 mmol/L (22-29); Chloride 104 mmol/L (98-107); Estimated GFR-MDRD Greater than 90
[2017-03-09 07:24] VITALS: BP 141/92
[2017-03-09] MEDS: Ascorbic Acid 500 mg Chewable Tablet PO SCH (07:47)
[2017-03-09] MEDS: Clopidogrel Bisulfate 75 MG TAB PO SCH (07:49)
[2017-03-09] MEDS: Famotidine 20 MG TAB PO SCH (07:50)
[2017-03-09] MEDS: Amlodipine 5 MG TAB PO SCH (07:50)
[2017-03-09] MEDS: Aspirin 81 mg Enteric Coated Tablet PO SCH (07:50)
[2017-03-09] MEDS: Docusate 100 MG CAP PO SCH (07:50)
[2017-03-09] MEDS: Folic Acid 1 MG TAB PO SCH (07:51)
[2017-03-09] MEDS: Lisinopril 10 MG TAB PO SCH (07:51)
[2017-03-09] MEDS ORDERED: Potassium Chloride 20 MEQ TAB PO SCH (08:00)
--- NOTE | 2017-03-09 11:36 | DIS ---
DATE OF ADMISSION: 03/05/2017 DATE OF DISCHARGE: 03/09/2017 PRIMARY CARE PHYSICIAN: Mainor Galloway M.D. DISCHARGE DISPOSITION: Home. PRIMARY DISCHARGE DIAGNOSES: 1. Polysubstance abuse. 2. Acute kidney failure. 3. Demand ischemia of myocardium. 4. Lactic acidosis. 5. Lumbosacral pain due to lumbar disk disease. 6. Sepsis with acute organ dysfunction. 7. Abnormal liver function tests due to sepsis. SECONDARY DISCHARGE DIAGNOSES: Polysubstance abuse, lumbar disk disease, hypertension, dyslipidemia , chronic hepatitis C, coronary artery disease, obesity with body mass index 36. PRIMARY PROCEDURE/OPERATION: None. RADIOLOGICAL INVESTIGATION: Lumbar spine MRI was showing lumbar disk disease. Abdomen and pelvis C T scan was unremarkable. It showed moderate bilateral perinephric fat stranding. SIGNIFICANT LABORATORY DATA: WBC 12.4, hemoglobin 15.2, and platelet 285. INR 1.3. Sodium 136, po tassium 3.4, BUN 13, creatinine 0.89, calcium 9.0, troponin 0.049. LFT normal. Hepatitis C positiv e. HIV negative. Blood culture and urine culture negative. DISCHARGE MEDICATIONS: Tylenol #3 one or two tablet p.o. q.6 hourly p.r.n., aspirin 81 mg p.o. [place], Omnicef 300 mg twice daily for 5 days, Plavix 75 mg p.o. daily, Pepcid 20 mg p.o. b.i.d., folic a efrain 1 mg p.o. daily, lisinopril 10 mg p.o. daily, Toprol-XL 25 mg p.o. daily, pravastatin 20 mg p.o. at bedtime, thiamine 100 mg p.o. daily, and amlodipine 5 mg p.o. daily. CONTRAINDICATIONS: None. CODE STATUS: FULL CODE. INPATIENT STABLE HELPER: Dr. Kemp was consulted while in hospital. TEST RESULTS PENDING ON DISCHARGE: None. ALLERGIES: No known drug allergies. DISCHARGE PLAN: Post hospital, the patient will follow up with Dr. Kemp and primary care physician . HOSPITAL COURSE: A 41-year-old male who was admitted by Dr. Vann on 03/05/2017. Please see his HP I for further details. This patient had CT abdomen and pelvis which showed bilateral perinephric fa t stranding. He was admitted for sepsis with acute organ dysfunction. He was having acute kidney f ailure, metabolic acidosis with lactic acidosis and abnormal LFT. He was admitted to medical floor. He was treated with IV fluids and broad spectrum antibiotic therapy with cefepime and vancomycin. His cultures remain negative and on discharge we changed to Omnicef for another 10 days. His hepat itis C profile is positive and he is advised to follow up with liver specialist for hepatitis C jaylan walton. His leukocytosis is significantly improving to 12.4. While in hospital, he never had any fe jun as he was complaining of back pain and that is why we did lumbar spine MRI which showed lumbar d isk disease. Dr. Kemp was also following while in hospital as this patient was in [facility] initially t hat is why Dr. Catalan saw this patient as well. Upon medical floor, he remained stable. He remained afebrile. His pain was controlled. He was amb ulatory. On discharge, we changed to Omnicef for another 10 days. Otherwise, the patient will cont inue all his previous medications. He had indeterminate troponin. While in hospital, we also provi ded patient counseling to avoid illicit drug abuse. Patient is seen and examined at bedside today. All other review of systems reviewed with him and niall wise. PHYSICAL EXAMINATION: VITAL SIGNS: Currently, temperature 97.7, pulse 82, respiratory rate 20, saturation 95%, blood pre ssure 141/92, and weight 260 pounds. GENERAL: The patient is currently alert, awake, no acute distress. HEAD: Normocephalic, atraumatic. EYES: Pupils round, reactive to light. Extraocular muscle intact. ENT: Oropharynx within normal limits. LUNGS: Clear. CARDIAC: S1, S2 regular without any murmur. ABDOMEN: Soft and benign. EXTREMITIES: No edema. NEUROLOGIC: Nonfocal examination. The patient does not have any CVA tenderness. Overall, the patient is medically stable for discharg e today. Total time spent on discharge day 31 minutes.
--- NOTE | 2017-03-10 15:53 | EKG ---
Test Reason : STAT Blood Pressure : / mmHG Vent. Rate : 063 BPM Atrial Rate : 063 BPM P-R Int : 164 ms QRS Dur : 086 ms QT Int : 406 ms P-R-T Axes : 056 037 054 degrees QTc Int : 415 ms Normal sinus rhythm with sinus arrhythmia Normal ECG Confirmed by WILDER LUI ([id number]) on 03/10/2017 3:53:02 PM Referred By: CARLOS Confirmed By:WILDER LUI
--- OUTSIDE RECORDS SUMMARY | 2017-03-10 23:03 | XMS | Continuity of Care Document ---
:1975 Author Organization Formerly [facility] Care Team Providers Name Role Phone HEADWIL Primary Care Physician Unavailable Insurance Providers Payer Name Policy Number Subscriber Name Relationship MEDICAID PENDING ESHA SAGE SELF/SAME PATIENT [employer] PENDING ESHA SAGE SELF/SAME PATIENT Advance Directives Directive Response Recorded Date/Time Advance Directive? N 05/31/16 8:48pm Living Will? N 05/31/16 8:48pm Health Care Proxy? N 05/31/16 8:48pm Healthcare Power of Oncology Physician Assistant? N 05/31/16 8:48pm Is the patient an Organ Donor? N 05/31/16 8:48pm Chief Complaint and Reason for Visit Reason for Visit BACK PAIN Problems Active Medical Problems Problem Onset Date Recorded Date Status Lumbar sprain Unknown 05/31/16 Active Medications Current Home Medications Medication Dose Units Route Directions Days/Qty Instructions Start Date ACETAMINOPHEN W/ 1 TAB PO EVERY SIX HOURS 05/31/16 CODEINE NEEDED PRN (ACETAMINOPHEN/CODE PAIN INE #3) 1 TAB TAB Clopidogrel 75 MG PO EVERY DAY @ 0900 Bisulfate (PLAVIX 75 MG TAB) 75 MG TAB Lisinopril (ZESTRIL 20 MG PO EVERY DAY @ 0900 20MG) 20 MG TAB Methocarbamol 750 MG PO FOUR TIMES A DAY 05/31/16 (ROBAXIN 750 MG (0900) TAB) 750 MG TAB Social History Problem Response Recorded Date Recreational drugs? N 05/31/16 Alcohol? N 05/31/16 Query Response Start Date Stop Date Smoking Status: Light Smoker < 10 per day Hospital Discharge Instructions No hospital discharge instructions. Plan of Care Discharge Date 05/31/16 Disposition HOME/SELF CARE Condition at Discharge STABLE Instructions/Education Provided DI for Low Back Pain Forms Provided Discharge Form Prescriptions See Medications Section Functional Status No functional status results. Allergies, Adverse Reactions, Alerts No known allergies. Immunizations No Known History of Immunizations. Vital Signs Vital Reading Collection Date/Time Result Blood Pressure 05/31/16 10:28pm 161/90 Blood Pressure Source 05/31/16 10:28pm Auto Cuff Patient Temperature 05/31/16 10:25pm 98.2 Temperature Source 05/31/16 8:35pm Oral Respiratory Rate 05/31/16 10:28pm 20 Pulse Rate 05/31/16 10:28pm 118 Pulse Location 05/31/16 10:28pm Monitor Bedside Pulse Oximetry 05/31/16 10:28pm 100 Height 05/31/16 8:35pm 180.34 cm Height 05/31/16 8:35pm 5 ft 11.00 in Weight 05/31/16 8:35pm 131.542 kg Weight 05/31/16 8:35pm 290 lb 0.00 oz Body Mass Index 05/31/16 8:35pm 40.4 Results [facility] ESHA [address] [id number] / [id number] [place], [place] [id number] 41 / M Adm: History of Pres Illness General Chief Complaint Pain (M.ER) Stated Complaint BACK PAIN Date seen by MD 05/31/16 Time seen by MD 2040 Source patient, family, RN notes reviewed (walk in with ) History limited by no limitations Reviewed nurses notes, vital signs, home medications, allergies History of Present Illness Initial Comments Patient walk in with ," I hurt my back, while carry heavy load about 3 hrs ago, I work as a pastoral assistant, I had back problem for about 15 yrsa, due to old injury, I have no problems uriation, no weakness or numbness of the legs". Timing/Duration this afternoon Severity/Quality moderate Location lumbar spine Radiation buttocks (none) Method of Injury twisted, prior injury Modifying Factors improves with rest Associated Symptoms muscle spasms, lower back pain Allergies Coded Allergies: No Known Drug Allergy (05/31/16) Prescriptions Reported Medications Lisinopril (ZESTRIL 20MG) 20 MG PO DAILY Clopidogrel Bisulfate (PLAVIX 75 MG TAB) 75 MG PO DAILY Review of Systems Constitutional denies no symptoms reported, see HPI, denies chills, denies diaphoresis, denies fever, denies malaise, denies weakness, denies other EENTM denies no symptoms reported, see HPI, denies eye pain, denies blurred vision, denies tearing , denies double vision, denies ear pain, denies ear discharge, denies nose pain , denies nose congestion, denies throat pain, denies throat swelling, denies mouth pain, denies mouth swelling, denies other Respiratory denies no symptoms reported, denies see HPI, denies cough, denies orthopnea, denies shortness of breath, denies stridor, denies wheezing, denies other Cardiovascular denies no symptoms reported, denies see HPI, denies chest pain, denies edema, denies palpitations, denies syncope, denies other Gastrointestinal denies no symptoms reported, denies see HPI, denies abdominal pain, denies constipation, denies diarrhea, denies nausea, denies vomiting, denies other Genitourinary denies no symptoms reported, denies see HPI, denies discharge, denies dysuria, denies frequency, denies hematuria, denies pain, denies other Musculoskeletal denies no symptoms reported, see HPI, back pain, denies gout, denies joint pain , denies joint swelling, denies muscle pain, muscle stiffness, denies neck pain, denies other Skin denies no symptoms reported, denies see HPI, denies change in color, denies change in hair/ nails, denies dryness, denies lesions, denies lumps, denies rash, denies other Psychiatric/Neurological denies no symptoms reported, denies see HPI, denies anxiety, denies depressed, denies emotional problems, denies headache, denies numbness, denies paresthesia, denies pre- existing deficit, denies seizure, denies tingling, denies tremors, denies weakness, denies other All Other Systems Reviewed and Negative Past History History unobtainable due to no limitations Past Medical History Past Medical History Stroke, HTN. No: Pertinent medical history. Other Medical Hx RAPID HEART RATE Surgical History no surgical history Family History Significant Family History no pertinent family hx, hypertension Social History Smoking Status: Light Smoker< 10 per day Smoking start date UNKNOWN Alcohol Use denies Drug Use denies Physical Exam Physical Exam General Appearance calm, no apparent distress, well hydrated EENT PERRL/EOMI, normal ENT inspection Neck normal inspection, limited range of motion, muscle spasm, tender midline Cardiovascular/Respiratory normal inspection, normal breath sounds, regular rate /rhythm, no JVD, no murmur/rub/gallop, no respiratory distress, normal peripheral pulses Peripheral Pulses 4+ carotid (R), 4+ carotid (L), 4+ femoral (R), 4+ femoral (L), 4+ dorsalis pedis (R), 4+ dorsalis pedis (L) Gastrointestinal normal inspection, non-distended, normal bowel sounds, non tender, soft, no organomegaly (obese) Back normal inspection, muscle spasm Extremities normal inspection, non-tender, normal range of motion, no evidence of injury, no pedal edema Neurologic/Psychiatric alert, appropriate mood/affect, no motor/sensory deficits , oriented x 3 Skin normal color, normal inspection, warm/dry Reviewed and agree with triage nurses notes Progress Progress Case discussed with patient, CT back was unremarkable, advice rest, warm skyler, takes meds and advice to see PCP or clinic for follow up, return to ED as needed. Vitals Vital Signs Date Time Temp Pulse Resp B/P Pulse O2 O2 Flow FiO2 Ox Delivery Rate 05/31 2227 118 20 161/90 100 05/31 2224 98.2 118 161/90 98 05/31 2034 98.2 122 155/97 98 Lab and Rad Results& Orders Orders Procedure Date/time Status Z CT SPINE LUMBAR WO CONT 05/31 2132 Complete Details of Miscellaneous Nursing Order: Departure Departure Time of Disposition 2202 Disposition HOME/SELF CARE Clinical Impression Primary Impression: Lumbar back sprain Condition STABLE Patient Instructions DI for Low Back Pain Prescriptions Current Visit Scripts ACETAMINOPHEN W/ CODEINE (ACETAMINOPHEN/CODEINE #3) 1 TAB PO [id number] PRN PAIN #20 TAB Methocarbamol (ROBAXIN 750 MG TAB) 750 MG PO QID #20 TAB Report created by: RICHY 05/31/162049 Report electronically signed by: SHAE DENIS MD 05/31/162238<< Signature on File> > Report cosigned by: Procedures No Known History of Procedures. Encounters Encounter Location Arrival/Admit Date Discharge/Depart Date Attending Provider Departed [place] 05/31/16 8:22pm 05/31/16 10:26pm Patricia DENIS [facility] Encounter Diagnosis Lumbar sprain
== END 2017-03-09 10:40 | disposition home or self-care (01) | DRG 871 ==
LOC: ERS 05:48 → IMCU/EMU 06:26 → T4-A 03-06 19:06
PROVIDERS: ADMIT Internal Medicine; ATTEND Internal Medicine
DX: A41.9 Sepsis, unspecified organism (principal); R65.21 Severe sepsis with septic shock; E87.2 Acidosis; N17.9 Acute kidney failure, unspecified; I24.8 Other forms of acute ischemic heart disease; E27.49 Other adrenocortical insufficiency; I69.354 Hemiplegia and hemiparesis following cerebral infarction affecting left non-dominant side; M51.86 Other intervertebral disc disorders, lumbar region; F19.10 Other psychoactive substance abuse, uncomplicated; E78.5 Hyperlipidemia, unspecified; B18.2 Chronic viral hepatitis C; E86.0 Dehydration; I12.9 Hypertensive chronic kidney disease with stage 1 through stage 4 chronic kidney disease, or unspecified chronic kidney disease; N18.2 Chronic kidney disease, stage 2 (mild); I25.10 Atherosclerotic heart disease of native coronary artery without angina pectoris; E66.9 Obesity, unspecified; Z68.36 Body mass index [BMI] 36.0-36.9, adult; Z95.5 Presence of coronary angioplasty implant and graft; F32.9 Major depressive disorder, single episode, unspecified; F17.210 Nicotine dependence, cigarettes, uncomplicated
CPT/HCPCS: 36415; 72148; 80048; 80053; 80074; 80202; 82533; 82553; 83605; 83690; 83735; 84100; 84484; 85025; 85610; 85730; 86140; 86706; 86803; 87340; 87389; 87522; 93005; 93010; 93306; 94760; A4216; J0360; J0692; J0696; J1100; J1650; J1720; J2185; J3370; J3411; J7050; P9045

== ENCOUNTER 2022-02-10 02:40 | Observation (INO) | payer BC, SELFPAY ==
[2022-02-10 03:11] LABS: #Eosinphils 0.2 thou/uL (0.0-0.7); #Lymphocytes 1.7 thou/uL (1.20-3.40); #Monocytes 1.1 thou/uL (0.11-0.59); #Neutrophils 9.2 thou/uL (1.40-6.50); %Basophils 0.4 % (0.0-1.0); %Eosinophils 1.4 % (0.0-10.0); %Lymphocytes 13.5 % (21.0-51.0); %Monocytes 9.4 % (0.0-10.0); %Neutrophils 75.4 % (42.0-75.0); Hemoglobin 14.9 g/dL (14.0-18.0); Mean Corpuscular HGB CONC 32.7 g/dL (32.0-36.0); Mean Corpuscular Hemoglobin 31.2 pg (27.0-31.0); Mean Corpuscular Volume 95.5 fL (78.0-98.0); Mean Platelet Volume 7.8 fL (7.4-10.4); Platelet Count 251 thou/uL (130-400); RBC Distribution Width 12.7 % (11.5-14.5); Red Blood Cell (RBC) Count 4.79 mill/uL (4.70-6.10); White Blood Cell (WBC) Count 12.2 thou/uL (4.8-10.8)
[2022-02-10 03:29] LABS: Acetaminophen Less than 10.0 mcg/mL (10.0-30.0); Alcohol Less than 10 mg/dL (Less than 10); Salicylate Less than 8.0 mg/dL (15.0-30.0)
[2022-02-10 03:30] LABS: ALT (SGPT) 41 U/L (8-55); AST (SGOT) 37 U/L (5-34); Albumin 3.9 g/dL (3.5-5.0); Alkaline Phosphatase 75 U/L (40-110); Anion Gap 16 mmol/L (10-20); BUN (Urea Nitrogen) 17 mg/dL (8.9-20.6); Bilirubin, Total 0.2 mg/dL (0.2-1.2); Calc. Creatinine Clearance 0 mL/min (70-130); Calcium 8.6 mg/dL (7.8-10.44); Carbon Dioxide 20 mmol/L (22-29); Chloride 109 mmol/L (98-107); Estimated GFR 55; Globulin 3.4 g/dL (2.4-3.5); Glucose 75 mg/dL (70-105); Potassium 4.5 mmol/L (3.5-5.1); Protein, Total 7.3 g/dL (6.0-8.3); Sodium 140 mmol/L (136-145)
[2022-02-10 03:41] LABS: Amphetamine Detected (NotDetected); Barbiturates Screen Not Detected (NotDetected); Benzodiazepine Screen Detected (NotDetected); Cocaine Metabolite Screen Not Detected (NotDetected); Methadone Not Detected (NotDetected); Methamphetamine Detected (NotDetected); Opiate Screen Detected (NotDetected); Oxycodone Screen Not Detected (NotDetected); Phencyclidine (PCP) Not Detected (NotDetected); THC/Cannabinoid Screen Not Detected (NotDetected); Tricyclic Screen Not Detected (NotDetected)
[2022-02-10 03:47] LABS: Bacteria/HPF None Seen HPF (None Seen); Bilirubin Negative (Negative); Blood, Urine Negative (Negative); Clarity Clear (Clear); Glucose, Urine (Dipstick) Normal (Negative); Ketone, Urine Negative (Negative); Leukocyte Negative Leu/uL (Negative); Nitrite Negative (Negative); Protein, Urine (Dipstick) 30 mg/dL (Neg-Trace); RBC/HPF 0-3 HPF (0-3); Specific Gravity, Urine 1.018 (1.002-1.036); Squamous Epithelial 0-3 HPF (0-3); Urobilinogen Normal mg/dL (Less than 2); WBC/HPF 0-3 HPF (0-3)
[2022-02-10 03:49] LABS: Sperm/HPF 1+ HPF (None Seen)
[2022-02-10] MEDS ORDERED: Acetaminophen 325 MG TAB PO PRN (07:32)
[2022-02-10] MEDS ORDERED: Lorazepam 1 MG TAB PO PRN (09:59)
[2022-02-10] MEDS ORDERED: Lorazepam 2 MG/ML VIAL IM PRN (09:59)
[2022-02-10] MEDS ORDERED: Ondansetron ODT 4 MG TAB PO PRN (09:59)
[2022-02-10] MEDS ORDERED: Electrolyte Replacement Protocol FS PRN (10:00)
[2022-02-10 10:14] VITALS: BMI 25.2
[2022-02-10 10:41] LABS: #Eosinphils 0.2 thou/uL (0.0-0.7); #Lymphocytes 2.2 thou/uL (1.20-3.40); #Neutrophils 8.2 thou/uL (1.40-6.50); %Basophils 0.3 % (0.0-1.0); %Eosinophils 1.8 % (0.0-10.0); %Lymphocytes 18.6 % (21.0-51.0); %Monocytes 8.8 % (0.0-10.0); %Neutrophils 70.4 % (42.0-75.0); Hemoglobin 15.4 g/dL (14.0-18.0); Mean Corpuscular HGB CONC 32.7 g/dL (32.0-36.0); Mean Corpuscular Hemoglobin 31.2 pg (27.0-31.0); Mean Corpuscular Volume 95.6 fL (78.0-98.0); Platelet Count 238 thou/uL (130-400); RBC Distribution Width 12.7 % (11.5-14.5); Red Blood Cell (RBC) Count 4.94 mill/uL (4.70-6.10); White Blood Cell (WBC) Count 11.6 thou/uL (4.8-10.8)
[2022-02-10 11:03] LABS: ALT (SGPT) 42 U/L (8-55); AST (SGOT) 39 U/L (5-34); Alkaline Phosphatase 74 U/L (40-110); Anion Gap 13 mmol/L (10-20); BUN (Urea Nitrogen) 14 mg/dL (8.9-20.6); Bilirubin, Direct 0.1 mg/dL (0.1-0.3); Bilirubin, Total 0.3 mg/dL (0.2-1.2); Calc. Creatinine Clearance 76 mL/min (70-130); Calcium 8.9 mg/dL (7.8-10.44); Carbon Dioxide 26 mmol/L (22-29); Chloride 105 mmol/L (98-107); Estimated GFR 62; Globulin 3.7 g/dL (2.4-3.5); Glucose 104 mg/dL (70-105); Magnesium 2.1 mg/dL (1.6-2.6); Phosphorus 3.7 mg/dL (2.3-4.7); Potassium 4.2 mmol/L (3.5-5.1); Protein, Total 7.7 g/dL (6.0-8.3); Sodium 140 mmol/L (136-145)
[2022-02-10] MEDS: Multivitamins, Adult 10 ML, Folic Acid 1 MG, Thiamine HCl 100 MG in Dextrose 5 %-0.45 %... IV SCH (12:08)
[2022-02-10] MEDS: Lorazepam 1 MG TAB PO SCH ×3 (12:08→22:01)
[2022-02-10] MEDS: Famotidine 20 MG TAB PO SCH ×2 (12:11→20:19)
[2022-02-10] MEDS: Enoxaparin Sodium 40 MG/0.4 ML SYRINGE SC SCH (12:11)
[2022-02-10] MEDS: Nicotine 7 MG PATCH TD SCH (12:12)
[2022-02-10] MEDS: Thiamine HCl 200 MG/2 ML VIAL SLOW IVP SCH (12:12)
[2022-02-10] MEDS: Sodium Chloride 0.9% 1,000 ML IV SCH (12:28)
[2022-02-11] MEDS: Sodium Chloride 0.9% 1,000 ML IV SCH (00:53)
[2022-02-11] MEDS: Lorazepam 1 MG TAB PO SCH ×3 (04:56→10:25)
[2022-02-11 05:06] LABS: #Basophils 0.1 thou/uL (0.0-0.2); #Eosinphils 0.5 thou/uL (0.0-0.7); #Lymphocytes 2.4 thou/uL (1.20-3.40); #Monocytes 1.3 thou/uL (0.11-0.59); #Neutrophils 6.4 thou/uL (1.40-6.50); %Basophils 0.6 % (0.0-1.0); %Eosinophils 4.8 % (0.0-10.0); %Lymphocytes 22.1 % (21.0-51.0); %Monocytes 12.6 % (0.0-10.0); Hemoglobin 15.1 g/dL (14.0-18.0); Mean Corpuscular HGB CONC 32.7 g/dL (32.0-36.0); Mean Corpuscular Hemoglobin 31.4 pg (27.0-31.0); Mean Corpuscular Volume 96.1 fL (78.0-98.0); Mean Platelet Volume 7.8 fL (7.4-10.4); Platelet Count 220 thou/uL (130-400); RBC Distribution Width 12.7 % (11.5-14.5); Red Blood Cell (RBC) Count 4.81 mill/uL (4.70-6.10); White Blood Cell (WBC) Count 10.7 thou/uL (4.8-10.8)
[2022-02-11 05:27] LABS: ALT (SGPT) 38 U/L (8-55); AST (SGOT) 31 U/L (5-34); Albumin 3.8 g/dL (3.5-5.0); Alkaline Phosphatase 76 U/L (40-110); Anion Gap 11 mmol/L (10-20); BUN (Urea Nitrogen) 10 mg/dL (8.9-20.6); Bilirubin, Total 0.4 mg/dL (0.2-1.2); Calc. Creatinine Clearance 102 mL/min (70-130); Calcium 8.8 mg/dL (7.8-10.44); Carbon Dioxide 26 mmol/L (22-29); Chloride 104 mmol/L (98-107); Estimated GFR 88; Globulin 3.3 g/dL (2.4-3.5); Glucose 93 mg/dL (70-105); Potassium 4.1 mmol/L (3.5-5.1); Protein, Total 7.1 g/dL (6.0-8.3); Sodium 137 mmol/L (136-145)
[2022-02-11] MEDS ORDERED: Multivit, Therapeutic 1 TAB PO SCH (09:00)
[2022-02-11] MEDS ORDERED: Folic Acid 1 MG TAB PO SCH (09:00)
[2022-02-11] MEDS ORDERED: Lorazepam 1 MG TAB PO PRN (09:59)
[2022-02-11] MEDS: Enoxaparin Sodium 40 MG/0.4 ML SYRINGE SC SCH (10:23)
[2022-02-11] MEDS: Famotidine 20 MG TAB PO SCH (10:23)
[2022-02-11 11:15] LABS: Syphilis Antibody Nonreactive (Nonreactive)
[2022-02-11 12:07] VITALS: BP 138/93; TEMP 97.6
[2022-02-11] MEDS: Multivitamins, Adult 10 ML, Folic Acid 1 MG, Thiamine HCl 100 MG in Dextrose 5 %-0.45 %... IV SCH (13:18)
[2022-02-11] MEDS: Nicotine 7 MG PATCH TD SCH (13:18)
[2022-02-11] MEDS: Thiamine HCl 200 MG/2 ML VIAL SLOW IVP SCH (13:18)
[2022-02-12] MEDS ORDERED: Lorazepam 1 MG TAB PO PRN (09:59)
[2022-02-12] MEDS ORDERED: Lorazepam 0.5 MG TAB PO SCH (10:00)
[2022-02-13] MEDS ORDERED: Lorazepam 0.5 MG TAB PO PRN (09:59)
[2022-02-13] MEDS ORDERED: Thiamine 100 MG TAB PO SCH (12:00)
== END 2022-02-11 13:23 | disposition home or self-care (01) ==
LOC: ERS 02:40 → SUATTDRO 02:40 → 2SW 06:03
PROVIDERS: ADMIT Hospitalist; ATTEND Hospitalist
DX: T40.1X1A Poisoning by heroin, accidental (unintentional), initial encounter (principal); R09.02 Hypoxemia; F17.210 Nicotine dependence, cigarettes, uncomplicated; I25.10 Atherosclerotic heart disease of native coronary artery without angina pectoris; I25.2 Old myocardial infarction; B18.2 Chronic viral hepatitis C; I48.91 Unspecified atrial fibrillation; I13.10 Hypertensive heart and chronic kidney disease without heart failure, with stage 1 through stage 4 chronic kidney disease, or unspecified chronic kidney disease; N18.9 Chronic kidney disease, unspecified; E78.5 Hyperlipidemia, unspecified; F17.220 Nicotine dependence, chewing tobacco, uncomplicated; F12.10 Cannabis abuse, uncomplicated; F15.10 Other stimulant abuse, uncomplicated; Z86.73 Personal history of transient ischemic attack (TIA), and cerebral infarction without residual deficits; Z79.899 Other long term (current) drug therapy; Z95.5 Presence of coronary angioplasty implant and graft; Z20.822 Contact with and (suspected) exposure to COVID-19
CPT/HCPCS: 36415; 71045; 80053; 80306; 80307; 81003; 81015; 82248; 83605; 83735; 84100; 84484; 85025; 86780; 93005; 96361; 96372; 96374; G0378; J1650; J3411; J7042; J7050; U0003; U0005